=== PATIENT | male | born 1970 | race African-American/Black ===

== ENCOUNTER 2016-08-02 15:12 | Inpatient (IN) | payer BC, OTHER ==
[2016-08-02] VITALS (7 sets, daily range): BP systolic 109–155; BP diastolic 63–90
[~2016-08-02] VITALS: Ht 182.9 cm; Wt 99.8 kg
[~2016-08-02 15:12] MED LIST: CORTISPORIN EAR10 ML LEFT EAR; NKM
[2016-08-02 16:21] LABS: MEAN CORPUSCULAR HEMOGLOBIN 27.3 PG (27.0-31.0); MEAN CORPUSCULAR HGB CONC 31.3 G/DL (32.0-36.0); MEAN CORPUSCULAR VOLUME 87 FL (80-99); MEAN PLATELET VOLUME 8.9 FL (6.5-10.1); PLATELET COUNT 226 K/UL (150-450); RED BLOOD COUNT 5.89 M/UL (4.70-6.10); RED CELL DISTRIBUTION WIDTH 13.1 % (11.6-14.8); WHITE BLOOD COUNT 21.6 K/UL (4.8-10.8)
[2016-08-02 16:28] LABS: ACETAMINOPHEN 127 ug/mL (10-30); ALANINE AMINOTRANSFERASE 13 U/L (3-41); ALBUMIN/GLOBULIN RATIO 1.3 (1.0-2.7); ALCOHOL < 10 mg/dL; ANION GAP 19 (5-15); ASPARTATE AMINO TRANSFERASE 19 U/L (5-40); CALCIUM 9.2 mg/dL (8.6-10.2); CARBON DIOXIDE 25 mEQ/L (20-30); CHLORIDE 95 mEQ/L (98-107); CREATININE 1.4 mg/dL (0.7-1.2); GLOMERULAR FILTRATION RATE > 60 mL/min (>60); HEMOLYSIS 4; POTASSIUM 4.6 mEQ/L (3.4-4.9); SODIUM 139 mEQ/L (135-145); TOTAL PROTEIN 7.7 g/dL (6.6-8.7); TROPONIN I < 0.30 ng/mL (<=0.30)
[2016-08-02 16:39] LABS: CKMB 2.2 ng/mL (< 6.7)
[2016-08-02] MEDS ORDERED: ACETYLCYSTEINE IV ONE ×5 (17:15→17:24)
[2016-08-02] MEDS ORDERED: D5W IV ONE ×3 (17:15)
[2016-08-02 17:59] LABS: BAND NEUTROPHILS % (MANUAL) 3 % (0-8); BASOPHILS % (MANUAL) 0 % (0-2); EOSINOPHILS % (MANUAL) 0 % (0-3); LYMPHOCYTES % (MANUAL) 6 % (20-45); NEUTROPHILS % (MANUAL) 88 % (45-75); PLATELET ESTIMATE ADEQUATE; PLATELET MORPHOLOGY NORMAL; TOTAL CELLS COUNTED 100
[2016-08-02] MEDS ORDERED: Famotidine 20 MG/ 2ML VIAL IVP ONE (19:15)
--- NOTE | 2016-08-02 19:33 | Emergency Room Report ---
History of Present Illness General Chief Complaint: Overdose Source: Family Member, EMS Present Illness HPI 45-year-old male presents ED for evaluation of overdose. Per EMS patient was found approximately one hour prior to arrival laying on his bed, with a suicide note and empty bottles of Tylenol, ibuprofen and Benadryl. Arrival patient is lethargic and only responsive to sternal rub. Protecting airway. Patient is unable to provide any additional history at this time. Unclear when patient actually took the medications. No other aggravating or relieving factors. No other associated symptoms. No reported history of psych or drug abuse. Allergies: Coded Allergies: No Known Allergies (Unverified , 02/04/13) Patient History Past Medical History: none Past Surgical History: none Pertinent Family History: none Social History: Denies: alcohol use, drug use, smoking Immunizations: UTD Reviewed Nursing Documentation: PMH: Agreed, PSxH: Agreed Nursing Documentation-PMH Past Medical History: No History, Except For Hx Hypertension: Yes Hx Diabetes: Yes Review of Systems All Other Systems: negative except mentioned in HPI Physical Exam Vital Signs Date Time Temp Pulse Resp B/P Pulse Ox O2 Delivery O2 Flow Rate FiO2 08/02/16 15:12 97.5 118 32 181/99 100 Non-Rebreather 08/02/16 16:26 15.0 Sp02 EP Interpretation: reviewed, normal General Appearance: no apparent distress, lethargic Head: normocephalic Eyes: bilateral eye PERRL, bilateral eye normal inspection ENT: hearing grossly normal, normal pharynx, no angioedema, normal voice Neck: full range of motion, supple/symm/no masses Respiratory: chest non-tender, lungs clear, normal breath sounds, speaking full sentences Cardiovascular #1: tachycardia Gastrointestinal: normal bowel sounds, non tender, soft, non-distended, no guarding, no rebound Rectal: deferred Genitourinary: no CVA tenderness Musculoskeletal: normal inspection Neurologic: other - lethargic Psychiatric: other - lethargic Skin: normal inspection Lymphatic: normal inspection Procedures Critical Care Time Critical Care Time i. I feel this is a highly complex case requiring extensive working including EKG/Rhythm strip, Xray/CT/US, Blood/urine lab work, repeat exams while in ED, and administration of strong opiates/narcotics for pain control, admission to hospital or close patient follow up. Total time: 30 min bedside evaluation and treatment excludes procedures (EKG). Reason for critical care: Unresponsive, overdose, Tylenol toxicity Possible complications: hypotension, hypertension, ME, shock, arrhythmias, metabolic acidosis, end organ damage, respiratory failure. Interventions: Labs, EKG, IV fluids, U. tox. Haro catheter. NAC. pepcid, zofran Course: Patient brought in unresponsive, reportedly overdosed on Tylenol, ibuprofen, Benadryl. Labs showed Tylenol level 127. Positive opiates. Started on NAC. given zofran, pepcid for vomiting. patient protecting airway. patient will be admitted to ICU. Consultations: nursing staff, EMS, family Performed by: Dr Feliciano Tolerated well condition = critical j. because of unstable vital signs this patient had a condition that could potentially threaten life or limb. I feel this is a critical patient who required my full attention while patient was considered critical. Total Critical Care Time excluding procedures was greater than 35 minutes Medical Decision Making Diagnostic Impression: Primary Impression: Drug overdose Qualified Codes: T50.902A - Poisoning by unspecified drugs, medicaments and biological substances, intentional self-harm, initial encounter Additional Impressions: Tylenol toxicity Qualified Codes: T39.1X2A - Poisoning by 4-aminophenol derivatives, intentional self-harm, initial encounter Suicide attempt ER Course Hospital Course 45-year-old male presents to ED with altered mental status. Took several pills in suicide attempt Differential diagnoses include: tylenol toxicity, aspirin toxicity, suicide attempt Clinical course She placed on stretcher. On chocolate packer. After initial history and physical ordered labs, IV fluids, EKG Labs reviewed-electrolytes okay, leukocytosis, hemoglobin/hematocrit stable, tylenol level 127, Utox + opiates NAC started. patient protecting airway becoming more awake. Vital stable. Patient has Treviño however isn't stable for transfer. We'll be admitted to Dr. Briceno case discussed with Dr. Briceno and he agreed to accept the patient to his service for further care and support i. I feel this is a highly complex case requiring extensive working including EKG/Rhythm strip, Xray/CT/US, Blood/urine lab work, repeat exams while in ED, and administration of strong opiates/narcotics for pain control, admission to hospital or close patient follow up. Diagnosis - drug overdose, Tylenol toxicity, suicide attempt Admitted to ICU in critical condition Labs Test 08/02/16 15:30 08/02/16 15:50 White Blood Count 21.6 K/UL (4.8-10.8) Red Blood Count 5.89 M/UL (4.70-6.10) Hemoglobin 16.1 G/DL (14.2-18.0) Hematocrit 51.4 % (42.0-52.0) Mean Corpuscular Volume 87 FL (80-99) Mean Corpuscular Hemoglobin 27.3 PG (27.0-31.0) Mean Corpuscular Hemoglobin Concent 31.3 G/DL (32.0-36.0) Red Cell Distribution Width 13.1 % (11.6-14.8) Platelet Count 226 K/UL (150-450) Mean Platelet Volume 8.9 FL (6.5-10.1) Neutrophils (%) (Auto) % (45.0-75.0) Lymphocytes (%) (Auto) % (20.0-45.0) Monocytes (%) (Auto) % (1.0-10.0) Eosinophils (%) (Auto) % (0.0-3.0) Basophils (%) (Auto) % (0.0-2.0) Differential Total Cells Counted 100 Neutrophils % (Manual) 88 % (45-75) Lymphocytes % (Manual) 6 % (20-45) Monocytes % (Manual) 3 % (1-10) Eosinophils % (Manual) 0 % (0-3) Basophils % (Manual) 0 % (0-2) Band Neutrophils 3 % (0-8) Platelet Estimate Adequate Platelet Morphology Normal Red Blood Cell Morphology Normal Sodium Level 139 mEQ/L (135-145) Potassium Level 4.6 mEQ/L (3.4-4.9) Chloride Level 95 mEQ/L (98-107) Carbon Dioxide Level 25 mEQ/L (20-30) Anion Gap 19 (5-15) Blood Urea Nitrogen 13 mg/dL (7-23) Creatinine 1.4 mg/dL (0.7-1.2) Estimat Glomerular Filtration Rate > 60 mL/min (>60) Glucose Level 186 mg/dL (74-106) Calcium Level 9.2 mg/dL (8.6-10.2) Total Bilirubin < 0.2 mg/dL (0.0-1.2) Aspartate Amino Transf (AST/SGOT) 19 U/L (5-40) Alanine Aminotransferase (ALT/SGPT) 13 U/L (3-41) Alkaline Phosphatase 69 U/L (40-129) Total Creatine Kinase 260 U/L (38-174) Creatine Kinase MB 2.2 ng/mL (< 6.7) Creatine Kinase MB Relative Index 0.8 Troponin I < 0.30 ng/mL (<=0.30) Total Protein 7.7 g/dL (6.6-8.7) Albumin 4.4 g/dL (3.5-5.2) Globulin 3.3 g/dL Albumin/Globulin Ratio 1.3 (1.0-2.7) Salicylates Level < 1 mg/dL (10-30) Acetaminophen Level 127 ug/mL (10-30) Serum Alcohol < 10 mg/dL Urine Opiates Screen Positive (NEGATIVE) Urine Barbiturates Screen Negative (NEGATIVE) Phencyclidine (PCP) Screen Negative (NEGATIVE) Urine Amphetamines Screen Positive (NEGATIVE) Urine Benzodiazepines Screen Negative (NEGATIVE) Urine Cocaine Screen Negative (NEGATIVE) Urine Marijuana (THC) Screen Negative (NEGATIVE) EKG Diagnostic Results Rate: tachycardiac Rhythm: NSR ST Segments: no acute changes ASA given to the pt in ED: No Rhythm Strip Diag. Results EP Interpretation: yes Rhythm: NSR, no PVC's, no ectopy Last Vital Signs Date Time Temp Pulse Resp B/P Pulse Ox O2 Delivery O2 Flow Rate FiO2 08/02/16 18:37 96.8 90 19 129/78 100 Nasal Cannula 2.0 Status: improved Disposition: ADMITTED INPATIENT Condition: Critical Referrals: [facility] (PCP) MARYELLEN FELICIANO M.D. Aug 02, 2016 19:33
[2016-08-02] MEDS ORDERED: Zolpidem 5mg tab ORAL PRN (19:45)
[2016-08-02] MEDS ORDERED: Morphine Sulfate 2mg/ml Inj IVP PRN (19:45)
[2016-08-02] MEDS ORDERED: Mylanta II UD 30ml ORAL PRN (19:45)
[2016-08-02] MEDS ORDERED: LORazepam Inj 2mg/ml 1ml IV PRN (19:45)
[2016-08-02] MEDS ORDERED: Miralax 17gm pkt ORAL PRN (19:45)
--- NOTE | 2016-08-02 19:48 | Pulmonolgy Critical Care Note ---
Critical Care - Asmt/Plan Problems: (1) Acute encephalopathy (2) Drug overdose (3) Suicide attempt (4) Tylenol toxicity Respiratory: monitor respiratory rate, adjust FIO2, CXR Cardiac: continue to monitor HR/BP Renal: F/U I&O, keep IV fluid, increase IV fluid, check electrolytes Infectious Disease: check cultures, continue antibiotics Gastrointestinal: continue feedings/current rate Endocrine: monitor blood sugar, check TSH, d/c insulin drip, start insulin drip , continue sliding scale insulin Hematologic: transfuse if hgb<8.5 Neurologic: PRN Ativan, PRN Morphine, keep patient comfortable Affect: PRN ativan Disposition: keep in ICU Notes Reviewed: foster care worker, cardio, renal Discussed with: consultants, pillowcase cleanercustomer acquisition manager - Objective Last 24 Hour Vital Signs Date Time Temp Pulse Resp B/P Pulse Ox O2 Delivery O2 Flow Rate FiO2 08/02/16 18:37 96.8 90 19 129/78 100 Nasal Cannula 2.0 08/02/16 17:49 97.8 98 26 128/71 100 Nasal Cannula 2.0 08/02/16 16:34 98.0 106 23 151/88 100 Non-Rebreather 15.0 08/02/16 16:26 105 23 Non-Rebreather 15.0 08/02/16 15:12 97.5 118 32 181/99 100 Non-Rebreather Status: awake Condition: critical, improving HEENT: atraumatic, normocephalic Neck: full ROM Lungs: clear, chest wall tender Heart: HR/BP unstable Abdomen: soft, non-tender, feeding tube Extremities: no C/C/E, edema Decubiti: location Accucheck: 119 Critical Care - Subjective ROS Limited/Unobtainable: Yes ICU Day: 1 Interval Events: 45-year-old male brought in by paramedics because he was found approximately one hour prior to arrival laying on his bed, with a suicide note and empty bottles of Tylenol, ibuprofen and Benadryl. On arrival to ER, patient was lethargic and only responsive to sternal rub. CXR: no acute infiltrate DESHAUN OJEDA Aug 02, 2016 19:48
[2016-08-02 21:17] LABS: ACETAMINOPHEN 157 ug/mL (10-30); ALANINE AMINOTRANSFERASE 14 U/L (3-41); ALBUMIN/GLOBULIN RATIO 1.3 (1.0-2.7); ANION GAP 27 (5-15); ASPARTATE AMINO TRANSFERASE 18 U/L (5-40); BILIRUBIN,DIRECT 0.1 mg/dL (0.1-0.3); CALCIUM 8.6 mg/dL (8.6-10.2); CARBON DIOXIDE 18 mEQ/L (20-30); CHLORIDE 93 mEQ/L (98-107); CREATININE 1.4 mg/dL (0.7-1.2); GLOMERULAR FILTRATION RATE > 60 mL/min (>60); HEMOLYSIS 31; POTASSIUM 5.1 mEQ/L (3.4-4.9); SODIUM 138 mEQ/L (135-145); TOTAL PROTEIN 7.2 g/dL (6.6-8.7)
[2016-08-03] VITALS (23 sets, daily range): BP systolic 113–157; BP diastolic 61–95
[2016-08-03 05:23] LABS: MEAN CORPUSCULAR HEMOGLOBIN 26.8 PG (27.0-31.0); MEAN CORPUSCULAR HGB CONC 31.5 G/DL (32.0-36.0); MEAN CORPUSCULAR VOLUME 85 FL (80-99); MEAN PLATELET VOLUME 9.6 FL (6.5-10.1); PLATELET COUNT 216 K/UL (150-450); RED BLOOD COUNT 6.02 M/UL (4.70-6.10); RED CELL DISTRIBUTION WIDTH 12.9 % (11.6-14.8); WHITE BLOOD COUNT 15.2 K/UL (4.8-10.8)
[2016-08-03 06:57] LABS: ALBUMIN/GLOBULIN RATIO 1.1 (1.0-2.7); CALCIUM 9.1 mg/dL (8.6-10.2); CHOLESTEROL/HDL RATIO 2.2 (3.3-4.4); CREATININE 1.7 mg/dL (0.7-1.2); GLOMERULAR FILTRATION RATE 52.6 mL/min (>60); POTASSIUM 4.8 mEQ/L (3.4-4.9); TOTAL PROTEIN 7.6 g/dL (6.6-8.7)
[2016-08-03 07:02] LABS: THYROID STIMULATING HORMONE 0.166 uIU/mL (0.300-4.500)
--- NOTE | 2016-08-03 11:11 | Diagnostic Imaging Report ---
Indication: Chest Pain Comparison: None A single view chest radiograph was obtained. Findings: No definite infiltrate or pulmonary vascular congestion identified. The heart is enlarged. The aorta is mildly enlarged consistent with atherosclerotic vascular disease. The bones are osteopenic. Impression: No acute disease
--- NOTE | 2016-08-03 11:26 | Pulmonolgy Critical Care Note ---
Critical Care - Asmt/Plan Problems: (1) Acute encephalopathy (2) Drug overdose (3) Suicide attempt (4) Tylenol toxicity Respiratory: monitor respiratory rate, adjust FIO2 Cardiac: continue to monitor HR/BP Renal: F/U I&O, keep IV fluid, check electrolytes Infectious Disease: check cultures, continue antibiotics Gastrointestinal: continue feedings/current rate Endocrine: monitor blood sugar, check TSH, continue sliding scale insulin Hematologic: monitor H/H, transfuse if hgb<8.5 Neurologic: PRN Ativan, PRN Morphine, keep patient comfortable Affect: PRN ativan Notes Reviewed: cook boat, cardio, renal Discussed with: nurses, consultants, outsole caserappointment manager - Objective Last 24 Hour Vital Signs Date Time Temp Pulse Resp B/P Pulse Ox O2 Delivery O2 Flow Rate FiO2 08/03/16 10:00 85 24 147/86 100 Nasal Cannula 2.0 08/03/16 09:00 104 28 157/87 100 Nasal Cannula 2.0 08/03/16 08:00 97.2 112 23 134/89 100 Nasal Cannula 2.0 08/03/16 08:00 108 08/03/16 07:00 83 18 122/61 100 Nasal Cannula 2.0 08/03/16 06:00 80 18 113/66 100 Nasal Cannula 2.0 08/03/16 05:00 82 18 136/84 100 Nasal Cannula 2.0 08/03/16 04:00 98.2 104 18 156/70 100 Nasal Cannula 2.0 08/03/16 04:00 95 08/03/16 03:00 82 18 155/70 100 Nasal Cannula 2.0 08/03/16 02:00 82 18 156/70 100 Nasal Cannula 2.0 08/03/16 01:55 100 Nasal Cannula 2.0 28 08/03/16 01:54 Nasal Cannula 2.0 28 08/03/16 01:00 97 19 152/82 100 Nasal Cannula 2.0 08/03/16 00:00 92 08/03/16 00:00 98.7 84 20 156/79 100 Nasal Cannula 2.0 08/02/16 23:45 97 18 155/90 100 Nasal Cannula 2.0 08/02/16 23:32 80 22 116/75 100 Nasal Cannula 2.0 08/02/16 23:16 98.1 82 24 116/75 100 Nasal Cannula 2.0 08/02/16 20:59 97.0 85 26 109/63 100 Nasal Cannula 2.0 08/02/16 19:54 97.0 88 16 111/65 100 Nasal Cannula 2.0 08/02/16 18:37 96.8 90 19 129/78 100 Nasal Cannula 2.0 08/02/16 17:49 97.8 98 26 128/71 100 Nasal Cannula 2.0 08/02/16 16:34 98.0 106 23 151/88 100 Non-Rebreather 15.0 08/02/16 16:26 105 23 Non-Rebreather 15.0 08/02/16 15:12 97.5 118 32 181/99 100 Non-Rebreather Status: awake, sedated Condition: critical HEENT: atraumatic, normocephalic Lungs: clear, chest wall tender Heart: HR/BP stable Abdomen: soft, non-tender, active bowel sounds Decubiti: location, stage Accucheck: 119 Critical Care - Subjective ROS Limited/Unobtainable: Yes ICU Day: 2 Condition: critical EKG Rhythm: Sinus Rhythm FI02: 28 Vent Support Mode: AC Fluids: acetylecyhstine I&O: Intake and Output 08/02/16 08/03/16 19:00 07:00 Intake Total 1000 ml 437.5 ml Output Total 800 ml 1580 ml Balance 200 ml -1142.5 ml Intake IV Total 1000 ml 437.5 ml Output Urine Total 800 ml 1580 ml CXR: no acute infiltrate Labs: Laboratory Tests Test 08/02/16 15:30 08/02/16 15:50 08/02/16 20:20 08/03/16 04:20 White Blood Count 21.6 K/UL (4.8-10.8) H 15.2 K/UL (4.8-10.8) H Red Blood Count 5.89 M/UL (4.70-6.10) 6.02 M/UL (4.70-6.10) Hemoglobin 16.1 G/DL (14.2-18.0) 16.2 G/DL (14.2-18.0) Hematocrit 51.4 % (42.0-52.0) 51.3 % (42.0-52.0) Mean Corpuscular Volume 87 FL (80-99) 85 FL (80-99) Mean Corpuscular Hemoglobin 27.3 PG (27.0-31.0) 26.8 PG (27.0-31.0) L Mean Corpuscular Hemoglobin Concent 31.3 G/DL (32.0-36.0) L 31.5 G/DL (32.0-36.0) L Red Cell Distribution Width 13.1 % (11.6-14.8) 12.9 % (11.6-14.8) Platelet Count 226 K/UL (150-450) 216 K/UL (150-450) Mean Platelet Volume 8.9 FL (6.5-10.1) 9.6 FL (6.5-10.1) Neutrophils (%) (Auto) % (45.0-75.0) % (45.0-75.0) Lymphocytes (%) (Auto) % (20.0-45.0) % (20.0-45.0) Monocytes (%) (Auto) % (1.0-10.0) % (1.0-10.0) Eosinophils (%) (Auto) % (0.0-3.0) % (0.0-3.0) Basophils (%) (Auto) % (0.0-2.0) % (0.0-2.0) Differential Total Cells Counted 100 Neutrophils % (Manual) 88 % (45-75) H Lymphocytes % (Manual) 6 % (20-45) L Monocytes % (Manual) 3 % (1-10) Eosinophils % (Manual) 0 % (0-3) Basophils % (Manual) 0 % (0-2) Band Neutrophils 3 % (0-8) Platelet Estimate Adequate Platelet Morphology Normal Red Blood Cell Morphology Normal Sodium Level 139 mEQ/L (135-145) 138 mEQ/L (135-145) 139 mEQ/L (135-145) Potassium Level 4.6 mEQ/L (3.4-4.9) 5.1 mEQ/L (3.4-4.9) H 4.8 mEQ/L (3.4-4.9) Chloride Level 95 mEQ/L (98-107) L 93 mEQ/L (98-107) L 98 mEQ/L (98-107) Carbon Dioxide Level 25 mEQ/L (20-30) 18 mEQ/L (20-30) L 19 mEQ/L (20-30) L Anion Gap 19 (5-15) H 27 (5-15) H 22 (5-15) H Blood Urea Nitrogen 13 mg/dL (7-23) 13 mg/dL (7-23) 14 mg/dL (7-23) Creatinine 1.4 mg/dL (0.7-1.2) H 1.4 mg/dL (0.7-1.2) H 1.7 mg/dL (0.7-1.2) H Estimat Glomerular Filtration Rate > 60 mL/min (>60) > 60 mL/min (>60) 52.6 mL/min (>60) Glucose Level 186 mg/dL (74-106) H 206 mg/dL (74-106) H 132 mg/dL (74-106) H Calcium Level 9.2 mg/dL (8.6-10.2) 8.6 mg/dL (8.6-10.2) 9.1 mg/dL (8.6-10.2) Total Bilirubin < 0.2 mg/dL (0.0-1.2) 0.2 mg/dL (0.0-1.2) 0.3 mg/dL (0.0-1.2) Aspartate Amino Transf (AST/SGOT) 19 U/L (5-40) 18 U/L (5-40) 18 U/L (5-40) Alanine Aminotransferase (ALT/SGPT) 13 U/L (3-41) 14 U/L (3-41) 13 U/L (3-41) Alkaline Phosphatase 69 U/L (40-129) 58 U/L (40-129) 62 U/L (40-129) Total Creatine Kinase 260 U/L (38-174) H Creatine Kinase MB 2.2 ng/mL (< 6.7) Creatine Kinase MB Relative Index 0.8 Troponin I < 0.30 ng/mL (<=0.30) Total Protein 7.7 g/dL (6.6-8.7) 7.2 g/dL (6.6-8.7) 7.6 g/dL (6.6-8.7) Albumin 4.4 g/dL (3.5-5.2) 4.1 g/dL (3.5-5.2) 4.1 g/dL (3.5-5.2) Globulin 3.3 g/dL 3.1 g/dL 3.5 g/dL Albumin/Globulin Ratio 1.3 (1.0-2.7) 1.3 (1.0-2.7) 1.1 (1.0-2.7) Salicylates Level < 1 mg/dL (10-30) L < 1 mg/dL (10-30) L Acetaminophen Level 127 ug/mL (10-30) H 157 ug/mL (10-30) H Serum Alcohol < 10 mg/dL Urine Opiates Screen Positive (NEGATIVE) H Urine Barbiturates Screen Negative (NEGATIVE) Phencyclidine (PCP) Screen Negative (NEGATIVE) Urine Amphetamines Screen Positive (NEGATIVE) H Urine Benzodiazepines Screen Negative (NEGATIVE) Urine Cocaine Screen Negative (NEGATIVE) Urine Marijuana (THC) Screen Negative (NEGATIVE) Direct Bilirubin 0.1 mg/dL (0.1-0.3) Triglycerides Level 42 mg/dL (< 150) Cholesterol Level 177 mg/dL (< 200) LDL Cholesterol 88 mg/dL (60-99) HDL Cholesterol 81 mg/dL (> 60) H Cholesterol/HDL Ratio 2.2 (3.3-4.4) L Thyroid Stimulating Hormone (TSH) 0.166 uIU/mL (0.300-4.500) DESHAUN OJEDA Aug 03, 2016 11:26
--- NOTE | 2016-08-03 14:11 | GI Initial Consult Note ---
History of Present Illness General Date patient seen: Aug 03, 2016 Time patient seen: 11:00 Reason for Hospitalization: Overdose Referring physician: BIJAN DILLARD Reason for Consultation: TYLENOL OVERDOSE Present Illness HPI 45-year-old male presents ED for evaluation of overdose. Per EMS patient was found approximately one hour prior to arrival laying on his bed, with a suicide note and empty bottles of Tylenol, ibuprofen and Benadryl. Arrival patient is lethargic and only responsive to sternal rub. Protecting airway. Patient is unable to provide any additional history at this time. Unclear when patient actually took the medications. No other aggravating or relieving factors. No other associated symptoms. No reported history of psych or drug abuse. GI NOTE: Initial HPI noted above. GI consulted for hepatotoxicity 2/2 Tylenol overdose. Pt seen on floor awake, A&Ox2 NAD. Patient cannot recall any prior events to hospital admission. No c/o of any GI symptoms at this time. States he does not wish to harm himself at this time. Sitter at bedside. Pt p/w with elevated acetaminophen levels and leukocytosis. LFTs unremarkable. Utox also shows amphetamines and opiates positive. Home Meds Active Scripts Neomycin/Polymyxin B Sulf/Hc* (CORTISPORIN EAR SOLUTION*) 10 Ml Solution, 4 DROP LEFT EAR QID for 7 Days, DROP 0 Refills Prov:AMANDEEP CHRISTY D.O. 02/04/13 Reported Medications No Known Medications* (NKM - No Known Medications*) ., 0 . 02/04/13 Med list reviewed/reconciled: Yes Allergies: Coded Allergies: No Known Allergies (Unverified , 02/04/13) Patient History Limited by: medical condition History Provided By: Medical Record PMH Narrative Past Medical History: none Past Surgical History: none Pertinent Family History: none Social History: Denies: alcohol use, drug use, smoking Immunizations: UTD Reviewed Nursing Documentation: PMH: Agreed, PSxH: Agreed Nursing Documentation-PM Past Medical History: No History, Except For Hx Hypertension: Yes Hx Diabetes: Yes Social History: Reports: drug use Review of Systems All Other Systems: negative except mentioned in HPI Physical Exam Vital Signs Date Time Temp Pulse Resp B/P Pulse Ox O2 Delivery O2 Flow Rate FiO2 08/02/16 15:12 97.5 118 32 181/99 100 Non-Rebreather 08/02/16 16:26 15.0 08/03/16 01:54 28 Sp02 EP Interpretation: reviewed Labs Laboratory Tests Test 08/02/16 15:30 08/02/16 15:50 08/02/16 20:20 08/03/16 04:20 White Blood Count 21.6 K/UL (4.8-10.8) H 15.2 K/UL (4.8-10.8) H Red Blood Count 5.89 M/UL (4.70-6.10) 6.02 M/UL (4.70-6.10) Hemoglobin 16.1 G/DL (14.2-18.0) 16.2 G/DL (14.2-18.0) Hematocrit 51.4 % (42.0-52.0) 51.3 % (42.0-52.0) Mean Corpuscular Volume 87 FL (80-99) 85 FL (80-99) Mean Corpuscular Hemoglobin 27.3 PG (27.0-31.0) 26.8 PG (27.0-31.0) L Mean Corpuscular Hemoglobin Concent 31.3 G/DL (32.0-36.0) L 31.5 G/DL (32.0-36.0) L Red Cell Distribution Width 13.1 % (11.6-14.8) 12.9 % (11.6-14.8) Platelet Count 226 K/UL (150-450) 216 K/UL (150-450) Mean Platelet Volume 8.9 FL (6.5-10.1) 9.6 FL (6.5-10.1) Neutrophils (%) (Auto) % (45.0-75.0) % (45.0-75.0) Lymphocytes (%) (Auto) % (20.0-45.0) % (20.0-45.0) Monocytes (%) (Auto) % (1.0-10.0) % (1.0-10.0) Eosinophils (%) (Auto) % (0.0-3.0) % (0.0-3.0) Basophils (%) (Auto) % (0.0-2.0) % (0.0-2.0) Differential Total Cells Counted 100 Neutrophils % (Manual) 88 % (45-75) H Lymphocytes % (Manual) 6 % (20-45) L Monocytes % (Manual) 3 % (1-10) Eosinophils % (Manual) 0 % (0-3) Basophils % (Manual) 0 % (0-2) Band Neutrophils 3 % (0-8) Platelet Estimate Adequate Platelet Morphology Normal Red Blood Cell Morphology Normal Sodium Level 139 mEQ/L (135-145) 138 mEQ/L (135-145) 139 mEQ/L (135-145) Potassium Level 4.6 mEQ/L (3.4-4.9) 5.1 mEQ/L (3.4-4.9) H 4.8 mEQ/L (3.4-4.9) Chloride Level 95 mEQ/L (98-107) L 93 mEQ/L (98-107) L 98 mEQ/L (98-107) Carbon Dioxide Level 25 mEQ/L (20-30) 18 mEQ/L (20-30) L 19 mEQ/L (20-30) L Anion Gap 19 (5-15) H 27 (5-15) H 22 (5-15) H Blood Urea Nitrogen 13 mg/dL (7-23) 13 mg/dL (7-23) 14 mg/dL (7-23) Creatinine 1.4 mg/dL (0.7-1.2) H 1.4 mg/dL (0.7-1.2) H 1.7 mg/dL (0.7-1.2) H Estimat Glomerular Filtration Rate > 60 mL/min (>60) > 60 mL/min (>60) 52.6 mL/min (>60) Glucose Level 186 mg/dL (74-106) H 206 mg/dL (74-106) H 132 mg/dL (74-106) H Calcium Level 9.2 mg/dL (8.6-10.2) 8.6 mg/dL (8.6-10.2) 9.1 mg/dL (8.6-10.2) Total Bilirubin < 0.2 mg/dL (0.0-1.2) 0.2 mg/dL (0.0-1.2) 0.3 mg/dL (0.0-1.2) Aspartate Amino Transf (AST/SGOT) 19 U/L (5-40) 18 U/L (5-40) 18 U/L (5-40) Alanine Aminotransferase (ALT/SGPT) 13 U/L (3-41) 14 U/L (3-41) 13 U/L (3-41) Alkaline Phosphatase 69 U/L (40-129) 58 U/L (40-129) 62 U/L (40-129) Total Creatine Kinase 260 U/L (38-174) H Creatine Kinase MB 2.2 ng/mL (< 6.7) Creatine Kinase MB Relative Index 0.8 Troponin I < 0.30 ng/mL (<=0.30) Total Protein 7.7 g/dL (6.6-8.7) 7.2 g/dL (6.6-8.7) 7.6 g/dL (6.6-8.7) Albumin 4.4 g/dL (3.5-5.2) 4.1 g/dL (3.5-5.2) 4.1 g/dL (3.5-5.2) Globulin 3.3 g/dL 3.1 g/dL 3.5 g/dL Albumin/Globulin Ratio 1.3 (1.0-2.7) 1.3 (1.0-2.7) 1.1 (1.0-2.7) Salicylates Level < 1 mg/dL (10-30) L < 1 mg/dL (10-30) L Acetaminophen Level 127 ug/mL (10-30) H 157 ug/mL (10-30) H Serum Alcohol < 10 mg/dL Urine Opiates Screen Positive (NEGATIVE) H Urine Barbiturates Screen Negative (NEGATIVE) Phencyclidine (PCP) Screen Negative (NEGATIVE) Urine Amphetamines Screen Positive (NEGATIVE) H Urine Benzodiazepines Screen Negative (NEGATIVE) Urine Cocaine Screen Negative (NEGATIVE) Urine Marijuana (THC) Screen Negative (NEGATIVE) Direct Bilirubin 0.1 mg/dL (0.1-0.3) Triglycerides Level 42 mg/dL (< 150) Cholesterol Level 177 mg/dL (< 200) LDL Cholesterol 88 mg/dL (60-99) HDL Cholesterol 81 mg/dL (> 60) H Cholesterol/HDL Ratio 2.2 (3.3-4.4) L Thyroid Stimulating Hormone (TSH) 0.166 uIU/mL (0.300-4.500) General Appearance: well appearing, no apparent distress, alert Head: normocephalic EENT: normal ENT inspection Neck: supple Respiratory: no respiratory distress Cardiovascular: normal rate Gastrointestinal: normal inspection, non tender, soft, normal bowel sounds Rectal: deferred Neurologic: alert - unable to recall prior events Psychiatric: no suicidal/homicidal ideation Skin: normal color, no rash Current Medications Current Medications Medications (Trade) Dose Ordered Sig/Tawana Route PRN Reason Start Time Stop Time Status Last Admin Dose Admin Al Hydroxide/Mg Hydroxide (Mylanta II) 30 ml Q6H PRN ORAL dyspepsia 08/02/16 19:45 09/01/16 19:44 Dextrose (Dextrose 50%) STAT PRN IV Hypoglycemia 08/02/16 19:45 09/01/16 19:44 Lorazepam (Ativan 2mg/ml 1ml) 0.5 mg Q4H PRN IV For Anxiety 08/02/16 19:45 08/09/16 19:44 Morphine Sulfate (Morphine Sulfate) 1 mg Q4H PRN IVP For Pain 08/02/16 19:45 08/09/16 19:44 Ondansetron HCl (Zofran) 4 mg Q6H PRN IVP Nausea & Vomiting 08/02/16 19:45 09/01/16 19:44 Polyethylene Glycol (Miralax) 17 gm HSPRN PRN ORAL Constipation 08/02/16 19:45 09/01/16 19:44 Zolpidem Tartrate (Ambien) 5 mg HSPRN PRN ORAL Insomnia 08/02/16 19:45 09/01/16 19:44 GI: Plan Problems: (1) Acute encephalopathy (2) Tylenol toxicity (3) Suicide attempt (4) Drug overdose Plan cont acetylcysteine for acetaminophen overdose - CBC, CMP, acetaminophen levels lab draw 1 hour after last bag monitor LFTs fu labs plan for patient to be transferred to [place] Discussed with Dr. Atwood. Thank you for referring this patient, we will follow. Yareli Guadarrama N.P. Aug 03, 2016 14:11
[2016-08-03 14:56] LABS: INR 1.5 (0.9-1.1); PROTHROMBIN TIME 15.3 SEC (9.30-11.50)
[2016-08-03 15:00] LABS: ACETAMINOPHEN 49 ug/mL (10-30); ALANINE AMINOTRANSFERASE 13 U/L (3-41); ASPARTATE AMINO TRANSFERASE 15 U/L (5-40); BILIRUBIN,DIRECT 0.1 mg/dL (0.1-0.3); HEMOLYSIS 8; TOTAL PROTEIN 7.5 g/dL (6.6-8.7)
[2016-08-03 17:22] LABS: CALCIUM 9.3 mg/dL (8.6-10.2); CREATININE 2.2 mg/dL (0.7-1.2); POTASSIUM 4.4 mEQ/L (3.4-4.9)
[2016-08-03] MEDS ORDERED: ACETYLCYSTEINE IV SCH (18:00)
[2016-08-03] MEDS ORDERED: D5W IV SCH (18:00)
[2016-08-03] MEDS ORDERED: Tubing IV Secondary IV ONE (21:44)
[2016-08-03] MEDS ORDERED: 1/2 NS 1000ml IV ONE (21:44)
[2016-08-03] MEDS ORDERED: Sterile Water Irrig 1000ml IRRIG ONE (21:44)
--- NOTE | 2016-08-03 23:27 | History and Physical Report ---
DATE OF ADMISSION: 08/02/2016 CHIEF COMPLAINT: This is a 45-year-old male, presents with complaint of Tylenol overdose. HISTORY OF PRESENT ILLNESS: The patient states he has become increasingly depressed over the of his father one week ago. The patient took 20 tablets of Tylenol as suicide gesture. The patient was transported to [place] emergency room. The patient was admitted for Tylenol overdose to rule out liver failure. PAST MEDICAL HISTORY: The patient denies. PAST SURGICAL HISTORY: Significant for a right inguinal hernia repair. CURRENT MEDICATIONS: The patient denies. ALLERGIES: No known drug allergies. SOCIAL HISTORY: The patient is . The patient works as a it security project manager. The patient admits to occasional tobacco use. The patient denies alcohol use. REVIEW OF SYSTEMS: Constitutional: The denies weight loss or weight gain. The patient denies fevers or chills. HEENT: The patient denies ear or throat pain. Cardiovascular: The patient denies palpitations or chest pain. Chest: The patient denies wheezes or shortness of breath. Abdomen: The patient denies nausea, vomiting, diarrhea, or constipation. Genitourinary: The patient denies dysuria or increased frequency of urination. Neuromuscular: The patient denies seizures or generalized weakness. PHYSICAL EXAMINATION: VITAL SIGNS: Temperature 97.2 degrees, pulse 112, respiratory rate 23, and blood pressure 134/89 . GENERAL: The patient is a well-developed and well-nourished male, in no apparent distress. HEENT: Pupils are equal and responsive to light and accommodation. Extraocular movements are intact. NECK: Supple without lymphadenopathy. CHEST: Lungs are clear to auscultation bilaterally without wheezes or rales. CARDIOVASCULAR: Regular rhythm and rate. S1 and S2 normal without murmurs, rubs, or gallops. ABDOMEN: Soft, nontender, and nondistended. Positive bowel sounds. No evidence of hepatosplenomegaly. Currently, no rebound or guarding. EXTREMITIES: No clubbing, cyanosis, or edema. RECTAL: Refused. GENITAL: Refused. NEUROLOGIC: Cranial nerves II through XII are grossly intact without focal deficits. Motor strength is 5/5 bilaterally. Deep tendon reflexes 2+ plantar. LABORATORY STUDIES: Sodium 139, potassium 4.6, chloride 95, CO2 25, BUN 13, creatinine 1.4, and glucose 186. Total bilirubin less than 0.2. AST 19 and ALT 13. WBC 21.6, hemoglobin 16. 1, hematocrit 51.4, and platelets 226,000. ASSESSMENT: This is a 45-year male, 1. Tylenol overdose. 2. Encephalopathy. 3. Major depression. 4. Suicide attempt. TREATMENT: 1. Tylenol overdose. Gastroenterology consultation with Dr. Kirk Atwood. The patient may require Mucomyst. Serial liver function tests will be run. 2. Encephalopathy. This may be secondary to Tylenol overdose as above. 3. Major depression/suicide attempt. A psychiatric consultation with Dr. Cohen. The patient may be transferred to [place] for continued psychiatric evaluation. Jb Ffoana M.D. DR: Nicole JOB#: [id number] CC:
--- NOTE | 2016-08-04 07:57 | Discharge Summary ---
Discharge Summary Hospital Course Date of Admission Aug 02, 2016 at 16:49 Date of Discharge Aug 03, 2016 at 21:45 Admitting Diagnosis tylenol overdose/SI HPI Kerrie Grover is a 45 year old male who was admitted on Aug 02, 2016 at 16:49 for Tylenol Overdose/Suicidal Ideation Hospital Course [id number] Discharge Discharge Disposition Patient was discharged to Acute Care Facility(02) Discharge Diagnoses: Magali Menjivar NP Aug 04, 2016 07:57
--- NOTE | 2016-08-05 19:27 | Discharge Summary 2 SIG ---
DATE OF ADMISSION: 08/02/2016 DATE OF DISCHARGE: 08/03/2016 BRIEF HOSPITAL COURSE: The patient is a 45-year-old male, who presented to ED for evaluation of altered mental status. Per EMS, the patient was found an prior to arrival lying on his bed with a suicide note and empty bottles of Tylenol, ibuprofen, and Benadryl. On arrival to ED, patient was lethargic and only responsive to sternal rub. Unable to provide any additional history. Urine toxicology was positive for amphetamine and opiates. He was admitted to ICU and was given IV hydration and acetylcysteine. He eventually woke up. Vitals were stable. He was transferred to [place] for further management. FINAL DIAGNOSES: 1. Acute toxic encephalopathy. 2. Major depression. 3. Suicide attempt. 4. Drug overdose. 5. Tylenol toxicity. Amanda Ramirez M.D. I have been assigned to dictate discharge summary on this account and I was not involved in the patient's management. Magali Menjivar N.P. DR: Nick JOB#: [id number] CC: LATASHA
--- NOTE | 2016-08-05 19:52 | Cardiology Report ---
APPROVED REPORT EKG Measurement Heart [id number] [place] [id number] Sinus tachycardia Right atrial enlargement Nonspecific ST and T wave abnormality Abnormal ECG
--- NOTE | 2016-08-12 11:46 | Diagnostic Imaging Report ---
APPROVED REPORT CPT Code: 76860 Present Symptoms Comments: R/O DVT BILATERAL: Imaging reveals a patent deep venous system bilaterally. There is no evidence of thrombus within the femoral, popliteal or tibial segments. The greater saphenous veins are also within normal limits. Doppler indicates normal spontaneous flow within these segments.
== END 2016-08-03 21:45 | disposition short-term general hospital (02) | DRG 917 ==
LOC: EDBD 15:12 → EMR 15:45 → ICU 16:49 → EDBEDREQ 21:26
DX: T39.1X2A Poisoning by 4-Aminophenol derivatives, intentional self-harm, initial encounter (principal); G92 Toxic encephalopathy; Y92.013 Bedroom of single-family (private) house as the place of occurrence of the external cause; F32.9 Major depressive disorder, single episode, unspecified; Z72.0 Tobacco use
CPT/HCPCS: 36415; 71010; 80048; 80053; 80061; 80076; 80300; 80329; 82248; 82550; 82553; 82962; 84443; 84484; 85007; 85025; 85610; 87081; 93005; 93970; 94760; J2405